=== PATIENT | male | born 1995 | race Caucasian/White ===

== ENCOUNTER 2016-09-01 19:08 | Emergency (ER) | payer OTHER ==
[2016-09-01 19:10] VITALS: BMI 17.7
[2016-09-01 19:27] VITALS: BP 127/74; PULSE 77; RESP 19; TEMP 98.8; O2SAT 98
[2016-09-01] MEDS ORDERED: guaiFENesin DM 100 mg-10 mg/5 ml UD PO PRN (19:38)
--- NOTE | 2016-09-01 19:44 | ED PDOC ---
Arrival/HPI - General Historian: Patient - History of Present Illness Time/Duration: 1 week Symptom Onset: Gradual Symptom Course: Worsening Context: Home <Elise Forde - Last Filed: 09/01/16 20:31> <Antonia Oneil - Last Filed: 09/01/16 21:26> - General Chief Complaint: Cough, Cold, Congestion Time Seen by Provider: 09/01/16 19:16 - History of Present Illness Narrative History of Present Illness (Text): 09/01/16 19:40 Patient is a 20 y/o with no PMH presenting with cough productive with dark sputum for 1 week. Patient is coming in today because the sputum is now blood tinged. Patient denies fever or chills. Patient admits to sore throat. Denies sob, n/v/d. Patient have been taking mucinex with no improvement. Denies sick contact. (Elise Forde) Past Medical History - Provider Review Nursing Documentation Reviewed: Yes - Travel History Have you recently traveled outside [place] w/in the past 3 mons?: No - Past History Past History: No Previous - Infectious Disease Hx of Infectious Diseases: None - Psychiatric Hx Substance Use: No - Past Surgical History Past Surgical History: No Previous - Anesthesia Hx Anesthesia: No <Elise Forde - Last Filed: 09/01/16 20:31> Family/Social History - Physician Review Nursing Documentation Reviewed: Yes Family/Social History: No Known Family HX Smoking Status: Never Smoked Hx Alcohol Use: Yes Frequency of alcohol use: Socially Hx Substance Use: No <Elise Forde - Last Filed: 09/01/16 20:31> Allergies/Home Meds <Elise Forde - Last Filed: 09/01/16 20:31> <Antonia Oneil - Last Filed: 09/01/16 21:26> Allergies/Adverse Reactions: Allergies cefaclor [From Ceclor] Allergy (Verified 09/01/16 19:21) RASH Review of Systems - Physician Review All systems were reviewed & negative as marked: Yes - Review of Systems Constitutional: Normal Eyes: Normal ENT: Sore Throat Respiratory: Cough, Sputum. absent: SOB, Wheezing Cardiovascular: Normal Gastrointestinal: Normal Genitourinary Male: Normal Musculoskeletal: Normal Skin: Normal Neurological: Normal Endocrine: Normal Hemo/Lymphatic: Normal Psychiatric: Normal <Elise Forde - Last Filed: 09/01/16 20:31> Physical Exam Vital Signs Reviewed: Yes Temperature: Afebrile Blood Pressure: Normal Pulse: Regular Respiratory Rate: Normal Appearance: Positive for: Well-Appearing, Non-Toxic, Comfortable Pain Distress: None Mental Status: Positive for: Alert and Oriented X 3 - Systems Exam Head: Present: Atraumatic, Normocephalic Pupils: Present: PERRL Conjunctiva: No: Icteric Ears: Present: Normal, NORMAL TM Mouth: Present: Moist Mucous Membranes Pharnyx: Present: ERYTHEMA. No: EXUDATE, TONSILS ENLARGED, Peritonsilar Swelling, Uvular Deviation, Muffled/Hoarse Voice, Strider, Soft Palate/Uvular Edema Nose (External): Present: Atraumatic Nose (Internal): Present: Normal Inspection Neck: Present: Normal Range of Motion Respiratory/Chest: Present: Clear to Auscultation, Good Air Exchange. No: Respiratory Distress, Accessory Muscle Use, Wheezes, Rales, Retracting, Rhonchi , Tachypneic, Tender to Palpation Cardiovascular: Present: Regular Rate and Rhythm, Normal S1, S2. No: Murmurs, Tachycardic, Bradycardic Abdomen: Present: Normal Bowel Sounds. No: Tenderness, Distention, Rebound, Guarding Upper Extremity: Present: Normal Inspection. No: Cyanosis, Edema Lower Extremity: Present: Normal Inspection. 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 Differentials:Viral URI versus bacteria URI, Post nasal drip, CAP, acute bronchitis, asthma. Plan: chest x-ray Zithranax 500 mg po, and robitussin DM. Discussed with Dr Oneil. (Elise Forde) Patient seen and examined. Normal exam; normal vitals. Normal CXR - will treat for bronchitis. 09/01/16 21:25 (Antonia Oneil) - RAD Interpretation Narrative RAD Interpretations (Text): 09/01/16 20:34 Normal chest x-ray. (Elise Forde) Radiology Orders: 09/01/16 19:37 CHEST ONE VIEW [RAD] Stat - Medication Orders Current Medication Orders: Discontinued Medications Azithromycin (Zithromax) 500 mg PO STAT STA PRN Reason: Protocol Stop: 09/01/16 19:39 Last Admin: 09/01/16 19:59 Dose: 500 mg Guaifenesin/Dextromethorphan (Robitussin Dm) 5 ml PO Q4H PRN PRN Reason: Cough Last Admin: 09/01/16 19:59 Dose: 5 ml - PA / [employer] / Resident Statement GRIFFIN has reviewed & agrees with the documentation as recorded. GRIFFIN has examined the patient and agrees with the treatment plan. <Antonia Oneil - Last Filed: 09/01/16 21:26> Disposition/Present on Arrival - Present on Arrival History of DVT/PE: No History of Uncontrolled Diabetes: No Urinary Catheter: No History of Decub. Ulcer: No History Surgical Site Infection Following: None <Elise Forde - Last Filed: 09/01/16 20:31> - Present on Arrival Any Indicators Present on Arrival: No - Disposition Have Diagnosis and Disposition been Completed?: Yes Disposition Time: 20:25 Patient Plan: Discharge <Antonia Oneil - Last Filed: 09/01/16 21:26> - Disposition Diagnosis: Bronchitis Disposition: HOME/ ROUTINE Condition: GOOD Discharge Instructions (ExitCare): Acute Bronchitis (ED) Additional Instructions: Continue Poly and mucinex daily. Take the medications as prescribed. Follow up with Dr. Barillas. Return to the emergency department if any new concerning symptoms. Prescriptions: Azithromycin [Zithromax] 2 tab PO DAILY #6 tab guaiFENesin/Codeine [Codeine/Guaifenesin 10 MG/5 Ml-100 MG/5 Ml 5] 2 tsp PO Q6H PRN #120 ml PRN Reason: Cough Referrals: Barillas,Dov S, [Primary Care Provider] - Follow up with primary
--- NOTE | 2016-09-02 08:59 | RAD ---
PROCEDURE: CHEST RADIOGRAPH, 1 VIEW HISTORY: Cough COMPARISON: None available. FINDINGS: LUNGS: The lungs are well inflated and clear. PLEURA: No pneumothorax or pleural fluid seen. CARDIOVASCULAR: Normal. OSSEOUS STRUCTURES: No significant abnormalities. VISUALIZED UPPER ABDOMEN: Normal. OTHER FINDINGS: None. IMPRESSION: No active pulmonary disease.
== END 2016-09-01 20:40 | disposition home or self-care (01) ==
LOC: ED 19:08
DX: J20.9 Acute bronchitis, unspecified (principal)